=== PATIENT | male | born 1995 | race Hispanic/Latino ===

== ENCOUNTER 2024-08-17 07:39 | Emergency (ER) | payer SELFPAY ==
[~2024-08-17] VITALS: Ht 160 cm; Wt 72.6 kg
--- NOTE | 2024-08-17 07:57 | ERN ---
ED Note History of Present Illness Stated Complaint: FEVER, COUGH, CONGESTION Chief Complaint: Fever Time Seen by MD: 07:41 Dictation: Patient is a 29-year-old male came to the ED with chief complaints of fatigue, sweating, vomiting, fever, headache since 3 days. Patient had a large bout of alcohol on the weekend and started to have symptoms the same night, and continued to have them for 2 days and presented to the ED today. Patient also informed about family history of due to renal failure . Patient also complains of abdominal pain and had vomitings. Patient also complained about itching on his back of head and behind the ears Allergies: Coded Allergies: No Known Allergies (Unverified Allergy, Unknown, 08/17/24) Home Meds Active Scripts Famotidine (Famotidine) 40 Mg Tablet, 40 MG PO DAILY, #10 TAB Prov:ANDRES SHORT MD 08/17/24 Ondansetron (Ondansetron Odt) 4 Mg Tab.rapdis, 4 MG PO BID, #10 TAB Prov:ANDRES SHORT MD 08/17/24 Past Medical History Past Medical History: No Pertinent History Surgical History: None Social History: ETOH Review of System Dictation Constitutional-no weight loss/gain. Patient complains of fever, chills, cough Eyes-no injury, pain, redness and discharge ENT-no injury, pain, swelling Cardiovascular no chest pain, palpitations, edema Respiratory no shortness of breath, wheezing Abdomen/GI-no constipation. Patient complains of abdominal pain, diarrhea, nausea, vomiting Back no injury and pain Genitourinary no injury, bleeding and discharge Musculoskeletal/extremities no injury, deformity . Skin no rash, discoloration Neuro-no pertinent problems Psych-no suicidal ideation, homicidal ideation, hallucinations, depression, anxiety, memory loss Initial Vital Sign VS Vital Signs Date Time Temp Pulse Resp B/P (MAP) Pulse Ox O2 Delivery O2 Flow Rate FiO2 08/17/24 07:40 100.0 80 16 136/89 100 Room Air 0 08/17/24 08:03 21 Physical Exam Dictation General-patient is awake alert and oriented Head/neck-normocephalic, atraumatic Eyes-PERRL, EOMI, vision at baseline Neck-trachea midline, supple, no nuchal rigidity Cardiovascular-RRR, normal S1/S2, no MRG is, no JVD Respiratory-no distress, wheezing, rales, rhonchi Abdomen-no tenderness, guarding, soft, nondistended Skin warm, dry, normal turgor, no rash Musculoskeletal/extremities pulses equal, no cyanosis Neuro-COA X 4, GCS 15, strength 5/5, CN 2-12 intact Psych-normal behavior, mood and affect normal Results (Laboratory/Radiology) Laboratory/Radiology Laboratory Tests Test 08/17/24 08:01 08/17/24 08:24 08/17/24 08:57 Influenza Type A Antigen Negative For Type A Influenza Type B Antigen Negative For Type B SARS-CoV-2 Antigen (Rapid) PRESUMPTIVE NEGATIVE Urine Color YELLOW (YELLOW) Urine Appearance CLEAR (CLEAR) Urine pH 6.0 (5.0-8.0) Urine Specific [place] 1.029 (1.001-1.031) Urine Protein 50 mg/dL (NEGATIVE) H Urine Glucose (UA) NEGATIVE mg/dL (NEGATIVE) Urine Ketones 20 mg/dL (NEGATIVE) H Urine Occult Blood SMALL (NEGATIVE) H Urine Nitrate NEGATIVE (NEGATIVE) Urine Bilirubin 0.5 mg/dL (NEGATIVE) H Urine Urobilinogen >=8.0 mg/dL (0.2-1.0) H Urine Leukocyte Esterase NEGATIVE Susie/uL Urine RBC 11-25 /HPF (0-1) H Urine WBC 0-1 /HPF (0-1) Urine Squamous Epithelial Cells RARE /HPF (0-2) Urine Bacteria None /HPF (None Seen) Urine Opiates Screen NEGATIVE (NEGATIVE) Urine Barbiturates Screen NEGATIVE (NEGATIVE) Urine Phencyclidine Screen NEGATIVE (NEGATIVE) Urine Amphetamines Screen NEGATIVE (NEGATIVE) Urine Benzodiazepines Screen NEGATIVE (NEGATIVE) Urine Cocaine Screen POSITIVE (NEGATIVE) H Urine Marijuana (THC) Screen POSITIVE (NEGATIVE) H White Blood Count 8.3 K/uL (4.8-10.8) Red Blood Count 5.33 MIL/uL (4.50-6.20) Hemoglobin 15.6 g/dL (14.0-18.0) Hematocrit 45.9 % (42-54) Mean Corpuscular Volume 86.1 fL (79-99) Mean Corpuscular Hemoglobin 29.3 pg (27.0-33.0) Mean Corpuscular Hemoglobin Concent 34.0 g/dL (32.0-36.0) Red Cell Distribution Width 13.0 % (11.0-15.5) Platelet Count 152 K/uL (130-400) Mean Platelet Volume 10.3 fL (7.5-10.5) Immature Granulocyte % (Auto) 0.2 % (0-1) Neutrophils (%) (Auto) 61.4 % (40.0-77.0) Lymphocytes (%) (Auto) 20.2 % (21.0-51.0) L Monocytes (%) (Auto) 14.3 % (3.0-13.0) H Eosinophils (%) (Auto) 3.4 % (0.0-8.0) Basophils (%) (Auto) 0.5 % (0.0-5.0) Neutrophils # (Auto) 5.1 K/uL (1.8-7.7) Lymphocytes # (Auto) 1.7 K/uL (1.0-4.8) Monocytes # (Auto) 1.2 K/uL (0.1-1.0) H Eosinophils # (Auto) 0.28 K/uL (0.00-0.70) Basophils # (Auto) 0.04 K/uL (0.00-0.20) Absolute Immature Granulocyte (auto 0.02 K/uL (0-1) Nucleated Red Blood Cells 0.0 % (0.0-0.19) Sodium Level 132 mmol/L (136-145) L Potassium Level 3.2 mmol/L (3.5-5.1) L Chloride Level 99 mmol/L (101-111) L Carbon Dioxide Level 28 mmol/L (21-32) Blood Urea Nitrogen 12 mg/dL (7-18) Creatinine 1.0 mg/dL (0.5-1.3) Glomerular Filtration Rate Calc 104 mL/min (>90) Random Glucose 111 mg/dL (70-105) H Total Calcium 8.6 mg/dL (8.5-10.1) Total Bilirubin 0.7 mg/dL (0.2-1.0) Aspartate Amino Transf (AST/SGOT) 26 U/L (10-37) Alanine Aminotransferase (ALT/SGPT) 35 U/L (12-78) Alkaline Phosphatase 86 U/L (50-136) Troponin I High Sensitivity < 4 ng/L (4-75) L Total Protein 7.8 g/dL (6.0-8.3) Albumin 3.6 g/dL (3.5-5.0) Lipase 24 U/L (16-77) EKG Comment: EKG taken on 08/17/2024 at 7:58 a.m. Patient is in sinus rhythm with heart rate of 59 [place] [address] elevations or depression seen on EKG ED Course ED Course Orders Procedure Category Date Status Time Cbc With Differential LAB 08/17/24 Complete 07:51 Comprehensive LAB 08/17/24 Complete Metabolic Panel 07:51 Lipase LAB 08/17/24 Complete 07:51 Ondansetron 4mg Inj PHA 08/17/24 Complete (Zofran 4mg Inj) 08:00 Pantoprazole 40mg Inj PHA 08/17/24 Complete (Protonix 40mg Inj 08:00 Chest 1vw RAD 08/17/24 Taken 07:51 12 Lead Ekg Tracing- EKG 08/17/24 Complete Technical 07:51 0.9%Nacl 1000ml (Ns PHA 08/17/24 Complete 1000ml) 08:00 Acetaminophen 500mg PHA 08/17/24 Complete Tab (Tylenol 500mg T 08:00 Troponin I High LAB 08/17/24 Complete Sensitivity 07:51 Urinalysis Profile LAB 08/17/24 Complete 07:51 Influenza Type A & B, LAB 08/17/24 Complete Rapid 07:57 Covid19 (Sars Antigen LAB 08/17/24 Complete Rapid) 07:57 Drug Screen Urine LAB 08/17/24 Complete 08:06 Current Medications Medications (Trade) Dose Ordered Sig/Jenn Route PRN Reason Start Time Stop Time Status Last Admin Dose Admin Acetaminophen (TYLenol 500MG TAB) 1,000 mg ONCE ONCE PO 08/17/24 08:00 08/17/24 08:06 DC 08/17/24 08:20 Ondansetron HCl (zoFRAN 4MG INJ) 4 mg ONCE ONCE IVP 08/17/24 08:00 08/17/24 08:06 DC 08/17/24 08:19 Pantoprazole Sodium (PROTonix 40MG INJ) 80 mg ONCE ONCE IVP 08/17/24 08:00 08/17/24 08:06 DC 08/17/24 08:19 Sodium Chloride 1,000 ml @ 0 mls/hr ONCE ONCE IV 08/17/24 08:00 08/17/24 08:06 DC 08/17/24 08:18 Vital Signs Date Time Temp Pulse Resp B/P (MAP) Pulse Ox O2 Delivery O2 Flow Rate FiO2 08/17/24 08:20 99.0 08/17/24 08:03 99.0 65 18 123/83 97 Room Air* 0 21 08/17/24 07:40 100.0 80 16 136/89 100 Room Air 0 Medical Decision Making MDM INITIAL IMPRESSION Initial history and physical concerning for upper respiratory tract infection, acute pancreatitis, drug abuse I have reviewed the triage nursing notes and vital signs. Initial plan: Laboratory evaluation and x-ray DATA REVIEW I have reviewed additional NN, repeat VS, and monitoring where indicated. Heart rate, blood pressure, and O2 saturation are acceptable. Aguirre diagnostic results: Cocaine and marijuana positive . ED COURSE Interventions: Fluids and medication Reassessment: Patient feels better DISPOSITION Final diagnostic impression: Polysubstance abuse I discussed my findings, clinical impression and treatment recommendations with the patient. My final plan for disposition was made based upon -mild risk of complications and potential morbidity of the patient's condition. -Discussion with the patient regarding management options. Patient will be discharged . DX & DISP Disposition: Discharge Departure Impression: Primary Impression: Polysubstance abuse Condition: Stable Scripts Famotidine (Famotidine) 40 Mg Tablet 40 MG PO DAILY, #10 TAB Prov: ANDRES SHORT MD 08/17/24 Ondansetron (Ondansetron Odt) 4 Mg Tab.rapdis 4 MG PO BID, #10 TAB Prov: ANDRES SHORT MD 08/17/24 Additional Instructions: Come back to the ER if you have any acute or emergency symptoms If you have been given medicine to help keep you sober or reduce your cravings, be sure to take it exactly as prescribed. Talk to your doctor about programs that can help you stop using drugs or drinking alcohol. Do not keep alcohol or drugs in your home. Plan ahead. Think about what you'll say if other people ask you to drink or use drugs. Try not to spend time with people who drink or use drugs. Use the time and money spent on drinking or drugs to do something that's important to you. Referrals: ISHAAN JUAREZ (PCP) Time of Disposition: 09:28 I have reviewed I have reviewed the case I WAS PRESENT AND PARTICIPATED IN THE CARE OF THIS PATIENT ALONGSIDE WITH THE RESIDENT PHYSICIAN. I HAVE REVIEWED AND PERSONALLY MADE AND APPROVED THE MANAGEMENT PLAN THAT IS DOCUMENTED IN THE NOTE BY MYSELF WITH THE RESIDENT PHYSICIAN. I ACKNOWLEDGED FOR RESPONSIBILITY FOR THE PATIENT'S MANAGEMENT PLAN. I have examined patient ANDRES SHORT MD Aug 17, 2024 07:57 ALEIDA IRIZARRY MD Aug 17, 2024 09:48
[2024-08-17 08:03] VITALS: O2SAT 97
--- NOTE | 2024-08-17 08:12 | EKG ---
[facility] Test Date: 2024-08-17 Test Time: 07:58:06 Pat Name: NATALIO UNGER Department: ED Room: Gender: Naturopath: [id number] : 1995 Requested By: ANDRES SHORT Order Number: [id number] Reading MD: Enid Bagley Measurements Intervals [place] Rate: 59 P: 63 AR: 145 QRS: 10 QRSD: 95 T: -2 QT: 364 QTc: 360 Interpretive Statements Sinus rhythm No previous ECG available for comparison Electronically Signed On 08-17-2024 10:51:43 COST ANALYST by Enid Bagley Please click the below link to view image of tracing.
[2024-08-17] MEDS: 0.9%NACL 1000ML 1,000 ML IV ONE (08:18)
[2024-08-17] MEDS: PANTOPrazole 40 MG/VIAL IVP ONE (08:19)
[2024-08-17] MEDS: ondanSETRON 4MG INJ IVP ONE (08:19)
[2024-08-17 08:20] VITALS: TEMP 99
[2024-08-17] MEDS: acetaMINOPHEN 500 MG TABLET PO ONE (08:20)
[2024-08-17 08:37] LABS: APPEARANCE,URINE CLEAR (CLEAR); BILIRUBIN,URINE 0.5 mg/dL (NEGATIVE); COLOR,URINE YELLOW (YELLOW); GLUCOSE, URINE (UA) NEGATIVE (NEGATIVE); KETONES,URINE 20 mg/dL (NEGATIVE); LEUKOCYTE ESTERASE ,URINE NEGATIVE Leu/uL (NEGATIVE); NITRATE,URINE NEGATIVE (NEGATIVE); OCCULT BLOOD,URINE SMALL (NEGATIVE); PROTEIN,URINE 50 mg/dL (NEGATIVE); UROBILINOGEN,URINE >=8.0 mg/dL (0.2-1.0)
[2024-08-17 08:39] LABS: ADD UA MICROSCOPIC YES
[2024-08-17 08:40] LABS: MUCUS,URINE RARE LPF (None Seen); SQUAMOUS EPITHELIAL CELL,UR RARE /HPF (0-2); WBC,URINE 0-1 /HPF (0-1)
[2024-08-17 08:43] LABS: AMPHET/METH SCREEN,URINE NEGATIVE (NEGATIVE); BARBITURATE SCREEN, URINE NEGATIVE (NEGATIVE); BENZODIAZEPINES SCREEN,URINE NEGATIVE (NEGATIVE); CANNABINOID SCREEN,URINE POSITIVE (NEGATIVE); COCAINE SCREEN,URINE POSITIVE (NEGATIVE); OPIATE SCREEN,URINE NEGATIVE (NEGATIVE); PHENCYCLIDINE SCREEN,URINE NEGATIVE (NEGATIVE)
[2024-08-17 08:48] LABS: COVID19 (SARS ANTIGEN RAPID) PRESUMPTIVE NEGATIVE (NEGATIVE); INFLUENZA TYPE A Negative For Type A (NEGATIVE); INFLUENZA TYPE B Negative For Type B (NEGATIVE)
[2024-08-17 09:01] LABS: BASOPHILS # (AUTO) 0.04 K/uL (0.00-0.20); BASOPHILS % (AUTO) 0.5 % (0.0-5.0); EOSINOPHILS # (AUTO) 0.28 K/uL (0.00-0.70); EOSINOPHILS % (AUTO) 3.4 % (0.0-8.0); HEMATOCRIT 45.9 % (42-54); IMMATURE GRANULOCYTE ABSOLUTE 0.02 K/uL (0-1); LYMPHOCYTES # (AUTO) 1.7 K/uL (1.0-4.8); LYMPHOCYTES % (AUTO) 20.2 % (21.0-51.0); MEAN CORPUSCULAR HEMOGLOBIN 29.3 pg (27.0-33.0); MEAN CORPUSCULAR VOLUME 86.1 fL (79-99); MONOCYTES # (AUTO) 1.2 K/uL (0.1-1.0); MONOCYTES % (AUTO) 14.3 % (3.0-13.0); NEUTROPHILS # (AUTO) 5.1 K/uL (1.8-7.7); NEUTROPHILS % (AUTO) 61.4 % (40.0-77.0); PLATELET COUNT (AUTO) 152 K/uL (130-400); RED BLOOD CELL COUNT(AUTO) 5.33 MIL/uL (4.50-6.20); WHITE BLOOD COUNT (AUTO) 8.3 K/uL (4.8-10.8)
[2024-08-17 09:17] LABS: POTASSIUM 3.2 mmol/L (3.5-5.1)
[2024-08-17 09:22] LABS: ALBUMIN 3.6 g/dL (3.5-5.0); BILIRUBIN,TOTAL 0.7 mg/dL (0.2-1.0); TOTAL PROTEIN, SERUM 7.8 g/dL (6.0-8.3)
[2024-08-17] MEDS ORDERED: ONDA-243 PO (09:30)
[2024-08-17] MEDS ORDERED: FAMO40TA7 PO (09:30)
--- NOTE | 2024-08-17 09:53 | HMCIMG ---
CHEST 1VW REASON: fever, Cough, chest pain , R/O lung infection COMPARISON: None. FINDINGS: Single view of the chest was obtained. Lungs are clear. Heart size is normal. There is no pulmonary vascular congestion. Mediastinum and bony thorax appear unremarkable. IMPRESSION: 1. Normal single view chest x-ray.
[2024-08-17 10:20] VITALS: BP 119/67; PULSE 63; RESP 16; TEMP 98.7
== END 2024-08-17 10:27 | disposition home or self-care (01) ==
LOC: EDH 07:39
DX: F19.10 Other psychoactive substance abuse, uncomplicated (principal); Z20.822 Contact with and (suspected) exposure to COVID-19
CPT/HCPCS: 99285; 96374; 96361; 71045; 96375; 87426; 84484; 80053; 80305; 83690; 85025; 87804 ×2; 36415; 93005; 81001; J7030; J2405; J2470